=== PATIENT | female | born 1995 | race Caucasian/White ===

== ENCOUNTER 2017-11-24 08:44 | Observation (INO) | payer MEDICAID ==
[~2017-11-24] VITALS: Ht 157.5 cm; Wt 87.5 kg
== END 2017-11-24 10:10 | disposition home or self-care (01) ==
LOC: L&D 08:44
PROVIDERS: ADMIT Specialist; ATTEND Specialist
DX: O62.9 Abnormality of forces of labor, unspecified (principal); Z3A.39 39 weeks gestation of pregnancy
CPT/HCPCS: 99281; G0378

== ENCOUNTER 2017-11-24 13:16 | Inpatient (IN) | payer MEDICAID ==
[~2017-11-24] VITALS: Ht 157.5 cm; Wt 87.5 kg
[2017-11-24] MEDS ORDERED: LIDOCAINE HCL 1% 20ML VIAL (Pyxis) INJ INFIL SCH (14:00)
[2017-11-24] MEDS ORDERED: BUTORPHANOL TARTRATE 2 MG/ML VIAL IV PRN (14:00)
[2017-11-24] MEDS ORDERED: NALOXONE HCL 0.4 MG/ML 1ML VIAL IM PRN (14:00)
[2017-11-24] MEDS ORDERED: METHYLERGONOVINE MALEATE 0.2 MG/ML IM PRN (14:00)
[2017-11-24] MEDS ORDERED: CARBOPROST TROMETHAMINE 250 MCG/ML AMPUL IM PRN (14:00)
[2017-11-24 14:15] LABS: EOSINOPHILS % 0.3 % (0.0-5.0); HEMATOCRIT. 32.3 % (36.0-48.0); HEMOGLOBIN. 10.7 g/dL (12.0-16.0); LYMPHOCYTES % 14.1 % (20.0-50.0); MEAN CORPUSCULAR VOLUME 78.4 fL (81.0-99.0); MEAN PLATELET VOLUME 11.1 fl (7.4-10.4); MONOCYTES % 3.5 % (2.0-8.0); NEUTROPHILS % 81.1 % (40.0-76.0); PLATELET 140 x1000/uL (130-400); RED BLOOD CELL COUNT 4.12 mill/uL (4.2-5.4); RED CELL DISTRIBUTION WIDTH 15.8 % (11.6-14.6)
[2017-11-24 14:24] LABS: INR 0.9; PARTIAL THROMBOPLASTIN TIME 24.6 sec (23.4-31.0); PROTHROMBIN TIME 9.4 sec (9.1-11.1)
[2017-11-24] MEDS ORDERED: DEXT 5%/LR + PITOCIN 20UNITS/L 1,000 ML IV SCH (14:41)
[2017-11-24] MEDS ORDERED: LANOLIN OINT 0.25 GM TUBE TOP PRN (14:45)
[2017-11-24] MEDS ORDERED: RHO(D) IMMUNE GLOBULIN 300 MCG/SYR IM PRN (14:45)
[2017-11-24] MEDS ORDERED: DIPHENHYDRAMINE 25MG CAPSULE PO PRN (14:45)
[2017-11-24] MEDS ORDERED: GLYCERIN/WITCH HAZEL LEAF MEDICATED PAD TOP PRN (14:45)
[2017-11-24] MEDS ORDERED: TETANUS, DIPHTHERIA, PERTUSSIS VAC/PF 0.5ML (>7YR OLD) IM ONE (14:45)
[2017-11-24] MEDS ORDERED: ACETAMINOPHEN WITH CODEINE 300/30MG TABLET PO PRN ×2 (14:45)
[2017-11-24] MEDS ORDERED: BISACODYL 10MG SUPP PR PRN (14:45)
[2017-11-24] MEDS ORDERED: HEMORRHOIDAL SUPP PR PRN (14:45)
[2017-11-24 14:54] LABS: HEPATITIS B SURFACE ANTIGEN NEGATIVE; RUBELLA IGG 109.1 IU/mL (4.99-10)
[2017-11-24] MEDS: DEXT 5%/LR + PITOCIN 20UNITS/L 1,000 ML IV SCH ×2 (14:55→19:33)
[2017-11-24] MEDS ORDERED: LACTATED RINGERS 1,000 ML IV SCH ×2 (15:49→20:30)
[2017-11-24] MEDS: IBUPROFEN 400MG TABLET PO PRN (16:00)
[2017-11-24 20:51] LABS: CLARITY URINE CLOUDY (CLEAR); COLOR URINE RED (YELLOW); KETONES URINE 1+ (NEGATIVE); LEUKOCYTE ESTERASE URINE 2+ (NEGATIVE); NITRITE URINE NEGATIVE (NEGATIVE); OCCULT BLOOD URINE 3+ (NEGATIVE); PROTEIN URINE 1+ (NEGATIVE); SPECIFIC GRAVITY URINE 1.019 (1.005-1.030)
[2017-11-24 20:59] LABS: *BARBITURATES SCREEN URINE NEGATIVE (NEGATIVE)
[2017-11-24 21:00] LABS: *AMPHETAMINES SCREEN URINE NEGATIVE (NEGATIVE); *BENZODIAZEPINES SCREEN URINE NEGATIVE (NEGATIVE); *COCAINE SCREEN URINE NEGATIVE (NEGATIVE); CANNABINOID URINE SCREEN NEGATIVE (NEGATIVE); METHADONE URINE SCREEN NEGATIVE (NEGATIVE); OPIATES URINE SCREEN NEGATIVE (NEGATIVE); PHENCYCLIDINE URINE SCREEN NEGATIVE (NEGATIVE)
[2017-11-24 21:10] VITALS: BP 112/67
[2017-11-24] MEDS: DOCUSATE SODIUM 100MG CAPSULE PO SCH (21:50)
[2017-11-24] MEDS: SIMETHICONE 80MG TABLET CHEW PO SCH (21:50)
[2017-11-25] VITALS: BP 108/60
[2017-11-25 05:44] VITALS: BP 110/65
[2017-11-25 08:15] VITALS: BP 96/46
[2017-11-25] MEDS: SIMETHICONE 80MG TABLET CHEW PO SCH ×4 (08:15→21:34)
[2017-11-25] MEDS: IBUPROFEN 400MG TABLET PO PRN ×2 (08:16→21:34)
[2017-11-25] MEDS: PRENATAL VIT/FE FUMARATE/FA TABLET PO SCH (08:17)
[2017-11-25 08:20] LABS: BASOPHILS % 0.4 % (0.0-2.0); EOSINOPHILS % 0.8 % (0.0-5.0); HEMATOCRIT. 27.7 % (36.0-48.0); LYMPHOCYTES % 23.9 % (20.0-50.0); MEAN CORPUSCULAR VOLUME 80.1 fL (81.0-99.0); MEAN PLATELET VOLUME 11.4 fl (7.4-10.4); MONOCYTES % 6.3 % (2.0-8.0); NEUTROPHILS % 68.6 % (40.0-76.0); PLATELET 112 x1000/uL (130-400); RED BLOOD CELL COUNT 3.46 mill/uL (4.2-5.4); RED CELL DISTRIBUTION WIDTH 15.6 % (11.6-14.6)
[2017-11-25] MEDS: FERROUS SULFATE 325MG TABLET PO SCH ×2 (13:26→17:00)
[2017-11-25 20:30] VITALS: BP 101/59
[2017-11-25] MEDS: DOCUSATE SODIUM 100MG CAPSULE PO SCH (21:00)
[2017-11-26] MEDS: DOCUSATE SODIUM 100MG CAPSULE PO SCH (02:04)
[2017-11-26 06:09] VITALS: BP 105/53
[2017-11-26] MEDS: SIMETHICONE 80MG TABLET CHEW PO SCH (07:48)
[2017-11-26] MEDS: FERROUS SULFATE 325MG TABLET PO SCH (07:48)
[2017-11-26] MEDS: PRENATAL VIT/FE FUMARATE/FA TABLET PO SCH (07:48)
[2017-11-26] MEDS ORDERED: TETANUS, DIPHTHERIA, PERTUSSIS VAC/PF 0.5ML (>7YR OLD) IM ONE (08:00)
[2017-11-26 09:00] VITALS: BP 97/55
== END 2017-11-26 12:30 | disposition home or self-care (01) | DRG 560 ==
LOC: L&D 13:16 → OBSVTOIN 13:16 → 7EST PP/OB 20:57
PROVIDERS: ADMIT Specialist; ATTEND Specialist
PROC: 10E0XZZ Delivery of Products of Conception, External Approach (ICD-10-PCS; principal; 2017-11-24 09:05)
DX: O99.02 Anemia complicating childbirth (principal); D64.9 Anemia, unspecified; O69.81X0 Labor and delivery complicated by cord around neck, without compression, not applicable or unspecified; Z37.0 Single live birth; Z3A.39 39 weeks gestation of pregnancy; Z23 Encounter for immunization
CPT/HCPCS: 36415; 80305; 81003; 85025; 85610; 85730; 86592; 86703; 86762; 86850; 86900; 87340; 90715; 99281; J2590; J7120

== ENCOUNTER 2019-08-01 08:04 | Inpatient (IN) | payer MEDICAID ==
[~2019-08-01] VITALS: Ht 157.5 cm; Wt 92.1 kg
[2019-08-01] MEDS ORDERED: PNV1TABL76 MT (08:44)
[2019-08-01] MEDS ORDERED: METHYLERGONOVINE MALEATE 0.2 MG/ML IM PRN (09:15)
[2019-08-01] MEDS ORDERED: LIDOCAINE HCL 1% 20ML VIAL (Pyxis) INJ INFIL SCH (09:15)
[2019-08-01] MEDS ORDERED: BUTORPHANOL TARTRATE 2 MG/ML VIAL IV PRN (09:15)
[2019-08-01] MEDS ORDERED: NALOXONE HCL 0.4 MG/ML 1ML VIAL IM PRN (09:15)
[2019-08-01] MEDS ORDERED: RHO(D) IMMUNE GLOBULIN 300 MCG/SYR IM ONE (09:15)
[2019-08-01] MEDS ORDERED: DEXT 5%/LR + PITOCIN 20UNITS/L 1,000 ML IV SCH ×2 (09:15→13:04)
[2019-08-01] MEDS ORDERED: PENICILLIN G POTASSIUM 5 MMU in DEXT 5% WATER 100 ML IV SCH (10:00)
[2019-08-01] MEDS: LACTATED RINGERS 1,000 ML IV SCH ×2 (10:16→20:52)
[2019-08-01 10:17] LABS: CLARITY URINE CLEAR (CLEAR); COLOR URINE YELLOW (YELLOW); KETONES URINE NEGATIVE (NEGATIVE); LEUKOCYTE ESTERASE URINE TRACE (NEGATIVE); NITRITE URINE NEGATIVE (NEGATIVE); OCCULT BLOOD URINE 1+ (NEGATIVE); PH URINE 6.5 (4.5-8.0); PROTEIN URINE NEGATIVE (NEGATIVE); SPECIFIC GRAVITY URINE 1.014 (1.005-1.030)
[2019-08-01 10:17] LABS: BASOPHILS % 0.3 % (0.0-2.0); HEMATOCRIT. 35.2 % (36.0-48.0); LYMPHOCYTES % 18.1 % (20.0-50.0); MEAN CORPUSCULAR HEMOGLOBIN 29.6 pg (28.0-32.0); MEAN CORPUSCULAR VOLUME 86.9 fL (81.0-99.0); MEAN PLATELET VOLUME 11.7 fl (7.4-10.4); MONOCYTES % 5.3 % (2.0-8.0); NEUTROPHILS % 74.3 % (40.0-76.0); PLATELET 123 x1000/uL (130-400); RED BLOOD CELL COUNT 4.05 mill/uL (4.2-5.4); RED CELL DISTRIBUTION WIDTH 16.5 % (11.6-14.6)
[2019-08-01 10:19] LABS: INR 0.9; PARTIAL THROMBOPLASTIN TIME 23.7 sec (23.4-31.0); PROTHROMBIN TIME 9.5 sec (9.6-11.0)
[2019-08-01] MEDS ORDERED: CITRIC ACID/SODIUM CITRATE SOLN 30ML UDC PO NR (10:30)
[2019-08-01] MEDS ORDERED: GLYCOPYRROLATE 0.2 MG/ML 2ML VIAL ONE ×2 (10:40→10:41)
[2019-08-01] MEDS ORDERED: PHENYLEPHRINE HCL 10 MG/ML 1ML (IV VIAL) IV ONE (10:41)
[2019-08-01] MEDS ORDERED: STERILE WATER FOR INJECTION 10ML VIAL ONE ×2 (10:41→10:46)
[2019-08-01 10:45] LABS: *AMPHETAMINES SCREEN URINE NEGATIVE (NEGATIVE)
[2019-08-01 10:46] LABS: *BARBITURATES SCREEN URINE NEGATIVE (NEGATIVE); *BENZODIAZEPINES SCREEN URINE NEGATIVE (NEGATIVE); *COCAINE SCREEN URINE NEGATIVE (NEGATIVE); METHADONE URINE SCREEN NEGATIVE (NEGATIVE); OPIATES URINE SCREEN NEGATIVE (NEGATIVE); PHENCYCLIDINE URINE SCREEN NEGATIVE (NEGATIVE)
[2019-08-01] MEDS ORDERED: EPHEDRINE SULFATE 50MG/ML VIAL ONE (10:46)
[2019-08-01 10:47] LABS: CANNABINOID URINE SCREEN NEGATIVE (NEGATIVE)
[2019-08-01] MEDS ORDERED: ONDANSETRON HCL 4MG/2ML INJ ONE (10:48)
[2019-08-01] MEDS ORDERED: METOCLOPRAMIDE HCL 10MG/2ML VIAL ONE (10:48)
[2019-08-01] MEDS ORDERED: MORPHINE SULFATE/PF 1MG/ML 10ML AMP ONE (10:51)
[2019-08-01] MEDS ORDERED: OXYTOCIN 10 UNITS/ML 1ML ONE (11:29)
[2019-08-01] MEDS ORDERED: CEFAZOLIN SODIUM 1000MG/VIAL ONE (11:41)
[2019-08-01] MEDS ORDERED: SODIUM CHLORIDE 0.9% 10ML VIAL ONE (11:41)
[2019-08-01 11:49] LABS: HEPATITIS B SURFACE ANTIGEN NEGATIVE
[2019-08-01] MEDS ORDERED: KETOROLAC 30MG/ML VIAL IV PRN (12:45)
[2019-08-01] MEDS ORDERED: DIPHENHYDRAMINE 50MG/ML VIAL IV PRN (12:45)
[2019-08-01] MEDS ORDERED: LANOLIN OINT 7GM TUBE TOP PRN (13:15)
[2019-08-01] MEDS ORDERED: ONDANSETRON HCL 4MG/2ML INJ IV PRN (13:15)
[2019-08-01] MEDS ORDERED: DIPHENHYDRAMINE 25MG CAPSULE PO PRN (13:15)
[2019-08-01] MEDS ORDERED: HYDROCODONE/ACETAMINOPHEN 5/325MG TABLET PO PRN ×2 (13:15)
[2019-08-01] MEDS ORDERED: BISACODYL 10MG SUPP PR PRN (13:15)
[2019-08-01] MEDS ORDERED: RHO(D) IMMUNE GLOBULIN 300 MCG/SYR IM PRN (13:15)
[2019-08-01] MEDS ORDERED: PENICILLIN G POTASSIUM 2.5 MMU in DEXTROSE 5% WATER 50 ML IV SCH (14:00)
[2019-08-01 14:30] VITALS: BP 113/57
[2019-08-01 15:00] VITALS: BP 106/50
[2019-08-01 19:30] VITALS: BP 112/48
[2019-08-01] MEDS: DOCUSATE SODIUM 100MG CAPSULE PO SCH (19:49)
[2019-08-02] VITALS: BP 105/53
[2019-08-02] MEDS ORDERED: TETANUS, DIPHTHERIA, PERTUSSIS VAC/PF 0.5ML (>7YR OLD) IM ONE (01:00)
[2019-08-02 04:00] VITALS: BP 110/5
[2019-08-02] MEDS: LACTATED RINGERS 1,000 ML IV SCH (05:26)
[2019-08-02 07:30] VITALS: BP 91/45
[2019-08-02] MEDS: PRENATAL VIT/FE FUMARATE/FA TABLET PO SCH (08:12)
[2019-08-02 11:33] LABS: BASOPHILS % 0.2 % (0.0-2.0); EOSINOPHILS % 1.5 % (0.0-5.0); HEMATOCRIT. 26.3 % (36.0-48.0); HEMOGLOBIN. 9.2 g/dL (12.0-16.0); MEAN CORPUSCULAR HEMOGLOBIN 30.4 pg (28.0-32.0); MEAN CORPUSCULAR VOLUME 86.8 fL (81.0-99.0); MEAN PLATELET VOLUME 10.6 fl (7.4-10.4); MONOCYTES % 6.8 % (2.0-8.0); NEUTROPHILS % 75.5 % (40.0-76.0); PLATELET 111 x1000/uL (130-400); RED BLOOD CELL COUNT 3.03 mill/uL (4.2-5.4); RED CELL DISTRIBUTION WIDTH 16.8 % (11.6-14.6)
[2019-08-02 15:48] VITALS: BP 110/54
[2019-08-02] MEDS: IBUPROFEN 400MG TABLET PO PRN (18:28)
[2019-08-02 19:30] VITALS: BP 107/56
[2019-08-02] MEDS: DOCUSATE SODIUM 100MG CAPSULE PO SCH (21:46)
[2019-08-03 04:00] VITALS: BP 106/56
[2019-08-03] MEDS ORDERED: FERR325T6 MT (06:43)
[2019-08-03] MEDS ORDERED: IBUP-2030 MT (06:43)
[2019-08-03] MEDS: IBUPROFEN 400MG TABLET PO PRN (09:23)
[2019-08-03] MEDS: PRENATAL VIT/FE FUMARATE/FA TABLET PO SCH (09:24)
== END 2019-08-03 12:30 | disposition home or self-care (01) | DRG 540 ==
LOC: 8 EST LDRP 08:04 → OBSVTOIN 08:04 → 8EST 14:50
PROVIDERS: ADMIT Obstetrics & Gynecology; ATTEND Obstetrics & Gynecology
PROC: 10D00Z1 Extraction of Products of Conception, Low, Open Approach (ICD-10-PCS; principal; 2019-08-01)
DX: O32.1XX0 Maternal care for breech presentation, not applicable or unspecified (principal); O99.03 Anemia complicating the puerperium; O99.824 Streptococcus B carrier state complicating childbirth; Z37.0 Single live birth; Z3A.39 39 weeks gestation of pregnancy
CPT/HCPCS: 36415; 76815; 80305; 81003; 85025; 86592; 86703; 86762; 86850; 86900; 87340; 88307; 90715; 99281; A4216; J0690; J1200; J2274; J2370; J2405; J2540; J2590; J2765; J3490; J7060